=== PATIENT | female | born 2000 | race Caucasian/White ===

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

== ENCOUNTER 2021-08-25 11:06 | Emergency (ER) | payer OTHER ==
[2021-08-25 11:32] VITALS: BMI 31.3
[2021-08-25] MEDS ORDERED: IBUPROFEN 600 MG TABLET (FP) PO ONE ×2 (13:06→16:26)
[2021-08-25] MEDS ORDERED: DEXAMETHASONE LIQUID 0.5 MG/5 ML PO ONE (13:06)
[2021-08-25 13:48] LABS: THROAT:GRP A STREP NOT DETECTED (NOTDETECTED)
[2021-08-25] MEDS ORDERED: ONDANSETRON 4 MG TABLET PO ONE (15:00)
[2021-08-25] MEDS ORDERED: ACETAMINOPHEN 500 MG TABLET (FP) PO ONE (15:26)
[2021-08-25] MEDS ORDERED: ACETAMINOPHEN 1000 MG/100 ML BAG IVPB ONE (15:29)
[2021-08-25] MEDS ORDERED: SODIUM CHLORIDE 0.9% 500 ML INFUS.BAG IV ONE (15:29)
[2021-08-25] MEDS ORDERED: ACETAMINOPHEN INJECTION 100 ML IVPB ONE (16:14)
[2021-08-25] MEDS ORDERED: ONDANSETRON *ODT* 4 MG TABLET ONE (16:26)
[2021-08-25] MEDS ORDERED: DEXAMETHASONE SOD PHOSPHATE 10 MG/1 ML VIAL ONE (16:26)
[2021-08-25 18:20] VITALS: BP 98/56; PULSE 112; TEMP 98.9
== END 2021-08-25 20:56 | disposition home or self-care (01) ==
LOC: JER 11:06
PROC: 3E033GC Introduction of Other Therapeutic Substance into Peripheral Vein, Percutaneous Approach (ICD-10-PCS; principal; 2021-08-25)
DX: U07.1 COVID-19 (principal)
CPT/HCPCS: 0241U-QW; 71046-TC-FY; 87651; 99284-25

== ENCOUNTER 2022-01-27 21:25 | Emergency (ER) | payer OTHER ==
[2022-01-27 21:37] VITALS: BP 118/88; TEMP 98.3; BMI 32.3
[2022-01-27] MEDS ORDERED: SODIUM CHLORIDE 0.9% 500 ML INFUS.BAG IV ONE (22:58)
[2022-01-27] MEDS ORDERED: ONDANSETRON 4 MG/2 ML VIAL IVPUSH ONE (23:22)
[2022-01-27] MEDS ORDERED: ONDANSETRON 4 MG/2 ML VIAL ONE (23:23)
[2022-01-27 23:30] LABS: BASO % 0.1 % (0-2.0); EOS % 0.2 % (0-4.5); HEMATOCRIT 44.2 % (32.4-45.2); LYMPH % 7.2 % (8-40); MCH 28.6 pg (25.7-33.7); MEAN CELL VOLUME 84.1 fl (80-96); MEAN PLT VOLUME 8.3 fl (7.5-11.1); MONO % 6.8 % (3.8-10.2); NEUT % 85.7 % (42.8-82.8); PLATELET COUNT 319 10^3/uL (134-434); RBC 5.26 M/mm3 (3.60-5.2); RDW 13.6 % (11.6-15.6); WHITE BLOOD COUNT 9.1 K/mm3 (4.0-10.0)
[2022-01-27 23:43] LABS: CALCIUM 9.3 mg/dL (8.5-10.1)
[2022-01-27 23:44] LABS: ALBUMIN 4.1 g/dl (3.4-5.0); BLOOD UREA NITROGEN 9.9 mg/dL (7-18); MAGNESIUM 2.1 mg/dL (1.8-2.4)
[2022-01-27 23:47] LABS: CREATININE 0.6 mg/dL (0.55-1.3)
[2022-01-27 23:48] LABS: BILIRUBIN,TOTAL 0.3 mg/dL (0.2-1); TOT PROT 7.9 g/dl (6.4-8.2)
[2022-01-28] LABS: INR 1.14 (0.83-1.09); PROTHROMBIN TIME (PATIENT) 13.1 SEC (9.7-13.0)
[2022-01-28] MEDS ORDERED: SODIUM CHLORIDE 0.9% 500 ML INFUS.BAG IV ONE (01:02)
[2022-01-28] MEDS ORDERED: ACETAMINOPHEN 1000 MG/100 ML BAG IVPB ONE (01:42)
[2022-01-28] MEDS ORDERED: ACETAMINOPHEN INJECTION 100 ML IVPB ONE (01:43)
[2022-01-28 02:04] VITALS: PULSE 115; RESP 16
== END 2022-01-28 02:31 | disposition home or self-care (01) ==
LOC: JER 21:25
PROC: 3E0333Z Introduction of Anti-inflammatory into Peripheral Vein, Percutaneous Approach (ICD-10-PCS; principal; 2022-01-27)
PROC: 3E033GC Introduction of Other Therapeutic Substance into Peripheral Vein, Percutaneous Approach (ICD-10-PCS; 2022-01-27)
DX: R07.1 Chest pain on breathing (principal)
CPT/HCPCS: 0241U-QW; 36415; 71046-TC-FY; 80053; 83735; 84443; 84484; 84703; 85025; 85379; 85610; 85730; 93005; 93010; 93971-TC; 99285-25